=== PATIENT | female | born 1980 | race African-American/Black ===

== ENCOUNTER 2024-05-31 22:38 | Emergency (ER) | payer MEDICAID ==
[~2024-05-31] VITALS: Ht 165.1 cm; Wt 65.0 kg
[2024-05-31 22:46] VITALS: O2SAT 98
[2024-05-31 23:21] LABS: BASOPHILS % 0.4 % (0.0-2.0); EOSINOPHILS % 0.2 % (0.0-5.0); HEMATOCRIT. 34.4 % (36.0-48.0); LYMPHOCYTES % 8.6 % (20.0-50.0); MEAN CORPUSCULAR HEMOGLOBIN 29.2 pg (28.0-32.0); MEAN CORPUSCULAR VOLUME 91.5 fL (81.0-99.0); MEAN PLATELET VOLUME 7.9 fl (7.4-10.4); MONOCYTES % 10.3 % (2.0-8.0); NEUTROPHILS % 80.5 % (40.0-76.0); PLATELET 247 x1000/uL (130-400); RED BLOOD CELL COUNT 3.76 mill/uL (4.2-5.4); RED CELL DISTRIBUTION WIDTH 16.8 % (11.6-14.6); WHITE BLOOD COUNT 6.4 x1000/uL (4.5-11.0)
[2024-05-31 23:28] LABS: CHLORIDE 98 mEq/L (98-107); POTASSIUM 3.2 mEq/L (3.5-5.1); SODIUM 136 mEq/L (136-145)
[2024-05-31 23:29] LABS: CARBON DIOXIDE 27 mEq/L (21-32)
[2024-05-31 23:30] LABS: CALCIUM 9.1 mg/dL (8.7-10.4)
[2024-05-31 23:34] LABS: CREATININE 0.6 mg/dL (0.6-1.0); GLUCOSE 56 mg/dL (70-105)
[2024-05-31 23:35] LABS: ETHANOL BLOOD 14 mg/dL (<10); UREA NITROGEN BLOOD 8 mg/dL (9-23)
[2024-05-31 23:37] LABS: TROPONIN I HIGH SENSITIVITY 4 ng/L (3.0-34)
[2024-05-31 23:46] LABS: HCG SCREEN NEGATIVE; INR 0.9; PARTIAL THROMBOPLASTIN TIME 27.6 sec (23.4-31.0); PROTHROMBIN TIME 9.9 sec (9.6-11.0)
[2024-06-01] MEDS: DEXTROSE 50% WATER 50ML SYRINGE IV NR (00:02)
[2024-06-01] MEDS: POTASSIUM CHLORIDE 20MEQ/PACKET PO ONE (00:33)
[2024-06-01] MEDS: DEXTROSE 50% WATER 50ML SYRINGE IV ONE (02:01)
[2024-06-01] MEDS: DEXT 10% WATER 1,000 ML IV ONE (02:18)
[2024-06-01 03:14] VITALS: BP 160/97; PULSE 79; RESP 15; TEMP 36.8; O2SAT 100
== END 2024-06-01 03:17 | disposition short-term general hospital (02) ==
LOC: ER 22:38 → CANBEDREQ 06-01 03:09 → ER 06-01 03:17
DX: E10.649 Type 1 diabetes mellitus with hypoglycemia without coma (principal); E87.6 Hypokalemia; F10.90 Alcohol use, unspecified, uncomplicated; R07.9 Chest pain, unspecified; Z79.4 Long term (current) use of insulin; Z79.899 Other long term (current) drug therapy; Y90.9 Presence of alcohol in blood, level not specified
CPT/HCPCS: 36415; 71045; 80048; 80320; 82962; 83880; 84484; 84703; 85025; 93005; 96365; 96366; 99291; G0480